=== PATIENT | male | born 1935 ===

== ENCOUNTER 2018-08-17 09:08 | Outpatient (CLI) | payer MEDICARE | END 2018-08-17 11:08 | disposition home or self-care (01) | LOC: ECT 09:08 | DX: F33.2 Major depressive disorder, recurrent severe without psychotic features (principal); I10 Essential (primary) hypertension; E11.9 Type 2 diabetes mellitus without complications; H91.90 Unspecified hearing loss, unspecified ear; Z87.442 Personal history of urinary calculi; Z98.890 Other specified postprocedural states; E78.5 Hyperlipidemia, unspecified; N40.0 Benign prostatic hyperplasia without lower urinary tract symptoms ==